=== PATIENT | male | born 1955 | race Caucasian/White ===

== ENCOUNTER 2017-04-05 08:37 | Observation (INO) | payer BC ==
[2017-04-05] MEDS ORDERED: NS 1,000 ML IV ONE (08:39)
[2017-04-05] MEDS ORDERED: ONDANSETRON 4 MG/2 ML VIAL IVP ONE (08:39)
--- NOTE | 2017-04-05 08:44 | EDPHY ---
H & P Time Seen by Provider: 04/05/17 08:41 HPI/ROS: HPI Fainted, head injury. 62-year-old male by private vehicle. This patient reports that he got up early this morning to get some work done. He reports that he was sitting down inside but then got up to go outside and have a cigarette. When he got outside he felt lightheaded and then fainted. He fell forward striking his head. He denies any associated chest pain, shortness of breath, palpitations, headache prior to this syncopal event. He takes aspirin but denies other antiplatelet or anticoagulant agents. He takes medication for hypertension. He reports having some alcohol last night. Otherwise he denies any street drugs. No alcohol this morning. He has some mild neck pain, a headache and a scalp laceration. He denies any focal weakness or loss of sensation in his extremities. No extremity pain. He reports he takes his blood pressure medications only as prescribed. He reports he is not taking his amlodipine in about a week because he ran out of the prescription. ROS: Constitutional: No fever, no chills. As above. Eyes: No discharge. No changes in vision. ENT: No sore throat. No nasal congestion or rhinorrhea. Respiratory: No cough. No shortness of breath. Cardiac: No chest pain, no palpitations. Gastrointestinal: No abdominal pain, no vomiting, no diarrhea. Genitourinary: No hematuria. No dysuria or increased frequency with urination. Musculoskeletal: No back pain. No neck pain. As above. Skin: No rashes. As above. Abrasions to hands. Neurological: As above. No focal weakness or altered sensation. Past medical history: Hypertension. He takes amlodipine, bisoprolol, chlorthalidone. He also reports using lisinopril. He takes a daily aspirin. Primary care physician is in this building. Dr. Mcnally. Social history: Smoker. Drinks alcohol in the evening. Here by himself. 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 Physical Exam: General Appearance: Alert, no distress. This patient is responding to questions appropriately and in full sentences. This patient appears well- hydrated and well-nourished. Head: Normocephalic atraumatic except for a stellate, scalp laceration about the size of a half-dollar, mid anterior parietal. No bony step-off or deformity noted on palpation of this area.. Face: Facial bones are stable on palpation. He has a 2.5 cm laceration above the right eye. He has superficial abrasions over the right maxilla and anterior aspect of the temporal bone. Eyes: Pupils equal and round and reactive to light, no pallor or injection. No lid erythema or edema. ENT, Mouth: Mucous membranes moist. Dentition is intact. No malocclusion of the jaw. No tongue lacerations or abrasions. Pharynx is clear. The bilateral nasal canals are clear. No septal hematoma. Respiratory: There are no retractions, lungs are clear to auscultation with good air movement bilaterally. Chest wall is stable to AP and lateral palpation. Cardiovascular: Regular rate and rhythm. No murmur. Gastrointestinal: Abdomen is soft and nontender, no masses, bowel sounds normal. Neurological: Motor sensory function is intact. Cranial nerves are normal. Cerebellar function intact. Skin: Warm and dry, no rashes. As above and some superficial abrasions on the dorsal aspect of both hands. Musculoskeletal: Neck is supple with mild paraspinal tenderness on palpation from C3 through C6 bilaterally. The trachea is midline. No midline cervical, thoracic, lumbar or sacral tenderness on palpation. No flank tenderness on palpation. Extremities are symmetrical, full range of motion. No pain on axial loading on all the digits of his hands, metacarpal bones, wrists bilaterally. All joints in the bilateral upper and bilateral lower extremities range without pain or impingement. No tenderness on palpation of the long bones in the bilateral upper and bilateral lower extremities. Psychiatric: No agitation. No depression. Database: EKG: EKG time is 8:50 a.m.; EKG shows a narrow complex sinus bradycardia with a ventricular rate of 31. The NM, QRS, QT intervals are within normal limits. There are no ST-T wave changes indicative of ischemic or injury pattern. No evidence of right heart strain. No evidence of WPW, hypertrophic cardiomyopathy , Brugada syndrome, arrhythmogenic right ventricular dysplasia. Interpreted by me. Imaging: CT scan of head and cervical spine: Negative. Results were discussed with staff radiologist. Procedures: Procedure: Laceration repair. Verbal consent was obtained from the patient. The 3.5 cm stellate laceration laceration on the anterior parietal scalp was anesthetized in the usual fashion. The wound was irrigated, draped and explored to its base with a gloved finger. There were no deep structures involved. No foreign body was identified. The wound was repaired with 7, 4.0 Prolene sutures placed in interrupted fashion. The wound repair was tolerated well and were no complications. The procedure was performed by myself. Procedure: Laceration repair. Verbal consent was obtained from the patient. The 2.5 cm laceration on the right lateral brow ridge was anesthetized in the usual fashion. The wound was irrigated, draped and explored to its base with a gloved finger. There were no deep structures involved. No tendon injury was identified. The wound was repaired with 5, 6.0 Ethilon sutures placed in interrupted fashion. The wound repair was tolerated well and there were no complications. The procedure was performed by myself. Emergency department course: IV placed. He was placed on a child monitor. He was started on IV normal saline with 1 L to be given over the next hour. EKG performed. Wound care as above patient sent for CT imaging of head and cervical spine. 9:50 a.m., results of CT scans were discussed with the patient. His blood work was discussed. His heart rate has consistently been in the mid to upper 30s while he has been in the emergency department. He has not been hypotensive. I discussed admission with him. He does not want to be admitted at this time. 10:10 a.m., patient re-evaluated. Resting comfortably at this time. Repeat neurologic Assessment is nonfocal. He is in agreement to be admitted. 10:15 a.m., discussed case with hospitalist. Patient accepted for admission to Dr. Galilea Holt. Patient's remaining emergency department course under my care has been uneventful. Despite his bradycardia he has remained stable. He was transferred by ambulance in stable condition. 10:20 a.m., discussed case with on-call trauma surgeon, Dr. Devaughn Sharif. He will consult on the patient for any further trauma management. Differential Diagnosis: The differential diagnosis on this patient includes but is not limited to scalp laceration, facial laceration, bradycardia, syncopal episode, probable beta shannon toxicity. Cervical spine fracture, traumatic brain injury, skull fracture, extremity injury, other significant traumatic injury unlikely. This represents a partial list of diagnoses considered. These considerations are based on history, physical exam, past history, reassessment and diagnostic testing. Smoking Status: Current every day smoker Constitutional: Initial Vital Signs Temperature (C) 36.6 C 04/05/17 08:48 Heart Rate 39 L 04/05/17 08:48 Respiratory Rate 18 04/05/17 08:48 Blood Pressure 174/75 H 04/05/17 08:48 O2 Sat (%) 97 04/05/17 08:48 O2 Delivery Mode Room Air Allergies/Adverse Reactions: No Known Allergies Allergy (Verified 12/29/15 18:01) Home Medications: Medication Instructions Recorded ASPIRIN 07/29/15 Amlodipine Besylate 07/29/15 Bisoprolol Fumarate 12/29/15 Chlorthalidone 12/29/15 Ciprofloxacin [Cipro] 500 mg PO BID 7 Days 12/29/15 Medical Decision Making - Diagnostics Imaging Results: Imaging Impressions Head CT 04/05/17 08:40 Impression: Soft tissue swelling in the frontal scalp. No evidence for skull fracture. No evidence for acute intracranial abnormality. Results called and message given to Raoul Rivero MD on April 05, 2017 at 0928 hours. - Data Points Laboratory Results: Laboratory Results 04/05/17 08:55 04/05/17 08:55 04/05/17 04/05/17 04/05/17 08:55 08:55 08:55 WBC 7.07 10^3/uL 10^3/uL (3.80-9.50) RBC 4.48 10^6/uL 10^6/uL (4.40-6.38) Hgb 15.3 g/dL g/dL (13.7-17.5) Hct 43.5 % % (40.0-51.0) MCV 97.1 fL fL (81.5-99.8) MCH 34.2 pg H pg (27.9-34.1) MCHC 35.2 g/dL g/dL (32.4-36.7) RDW 13.2 % % (11.5-15.2) Plt Count 201 10^3/uL 10^3/uL (150-400) MPV 9.7 fL fL (8.7-11.7) Neut % (Auto) 65.6 % % (39.3-74.2) Lymph % (Auto) 23.8 % % (15.0-45.0) Nelson % (Auto) 7.2 % % (4.5-13.0) Eos % (Auto) 2.5 % % (0.6-7.6) Baso % (Auto) 0.6 % % (0.3-1.7) Nucleat RBC Rel Count 0.0 % % (0.0-0.2) Absolute Neuts (auto) 4.64 10^3/uL 10^3/uL (1.70-6.50) Absolute Lymphs (auto) 1.68 10^3/uL 10^3/uL (1.00-3.00) Absolute Monos (auto) 0.51 10^3/uL 10^3/uL (0.30-0.80) Absolute Eos (auto) 0.18 10^3/uL 10^3/uL (0.03-0.40) Absolute Basos (auto) 0.04 10^3/uL 10^3/uL (0.02-0.10) Absolute Nucleated RBC 0.00 10^3/uL 10^3/uL (0-0.01) Immature Gran % 0.3 % % (0.0-1.1) Immature Gran # 0.02 10^3/uL 10^3/uL (0.00-0.10) PT 12.6 SEC SEC (12.0-15.0) INR 0.97 (0.83-1.16) APTT 25.0 SEC SEC (23.0-38.0) Sodium 137 mEq/L mEq/L (134-144) Potassium 3.9 mEq/L mEq/L (3.5-5.2) Chloride 98 mEq/L mEq/L (97-110) Carbon Dioxide 22 mEq/l mEq/l (22-31) Anion Gap 17 mEq/L H mEq/L (8-16) BUN 8 mg/dL mg/dL (7-23) Creatinine 0.8 mg/dL mg/dL (0.7-1.3) Estimated GFR > 60 Glucose 85 mg/dL mg/dL (70-100) Calcium 8.8 mg/dL mg/dL (8.5-10.4) Ethyl Alcohol 137 mg/dL H mg/dL (0-10) Medications Given: Discontinued Medications Sodium Chloride (Ns) 1,000 mls @ 0 mls/hr IV ONCE ONE; Wide Open PRN Reason: Protocol Stop: 04/05/17 08:40 Last Admin: 04/05/17 09:11 Dose: 1,000 mls Ondansetron HCl (Zofran) 4 mg IVP EDNOW ONE Stop: 04/05/17 08:40 Last Admin: 04/05/17 09:12 Dose: 4 mg Departure - Departure Disposition: [facility] Inpatient Acute Clinical Impression: Bradycardia, Syncope, Facial laceration, Scalp laceration, Head injury, Beta shannon toxicity, Alcohol intoxication
--- NOTE | 2017-04-05 08:52 | CPEKG ---
Heart Rate: 31 RR Interval: 1935 P-R Interval: 167 QRSD Interval: 96 QT Interval: 540 QTC Interval: 388 P [place]: 90 QRS [place]: 34 T Wave [place]: 65 EKG Severity - BORDERLINE ECG - EKG Impression: SINUS BRADYCARDIA EKG Impression: BORDERLINE T ABNORMALITIES, ANT-LAT LEADS Electronically Signed By: Raoul Rivero 05-Apr-2017 09:12:01
[2017-04-05 09:03] LABS: % IMMATURE GRANULYOCYTES 0.3 % (0.0-1.1); ABSOLUTE IMMATURE GRANULOCYTES 0.02 10^3/uL (0.00-0.10); ADD DIFF? NO; ADD MORPH? NO; ADD SCAN? NO; ATYPICAL LYMPHOCYTE FLAG 10 (0-99); FRAGMENT RBC FLAG 0 (0-99); HEMATOCRIT 43.5 % (40.0-51.0); HEMOGLOBIN 15.3 g/dL (13.7-17.5); LEFT SHIFT FLG 0 (0-99); LIPEMIA HEMOLYSIS FLAG 90 (0-99); MEAN CELL HEMOGLOBIN 34.2 pg (27.9-34.1); MEAN CELL HEMOGLOBIN CONCENTR. 35.2 g/dL (32.4-36.7); MEAN CELL VOLUME 97.1 fL (81.5-99.8); MEAN PLATELET VOLUME 9.7 fL (8.7-11.7); PLATELET CLUMPS FLAG 30 (0-99); PLATELET COUNT 201 10^3/uL (150-400); RED BLOOD CELL COUNT 4.48 10^6/uL (4.40-6.38); RED CELL DISTRIBUTION WIDTH 13.2 % (11.5-15.2)
[2017-04-05 09:12] LABS: ANION GAP 17 mEq/L (8-16); CALCIUM 8.8 mg/dL (8.5-10.4); CARBON DIOXIDE 22 mEq/l (22-31); CHLORIDE 98 mEq/L (97-110); CREATININE 0.8 mg/dL (0.7-1.3); GLOMERULAR FILTRATION RATE > 60; GLUCOSE 85 mg/dL (70-100); POTASSIUM 3.9 mEq/L (3.5-5.2); SODIUM 137 mEq/L (134-144)
[2017-04-05 09:17] LABS: INR 0.97 (0.83-1.16); PROTIME(PATIENT) 12.6 SEC (12.0-15.0)
[2017-04-05 10:34] LABS: ETHANOL SERUM 137 mg/dL (0-10)
[2017-04-05] MEDS ORDERED: NS 1,000 ML IV SCH (14:15)
[2017-04-05] MEDS ORDERED: ONDANSETRON 4 MG/2 ML VIAL IVP PRN (14:15)
[2017-04-05] MEDS ORDERED: ACETAMINOPHEN 325 MG TAB PO PRN (14:15)
[2017-04-05] MEDS ORDERED: LORazepam 1 MG TAB PO PRN (14:17)
--- NOTE | 2017-04-05 15:20 | GHP ---
[f rep st] HISTORY AND PHYSICAL DATE OF ADMISSION: 04/05/2017 CHIEF COMPLAINT: Syncope. HISTORY: The patient is a 62-year-old male who was getting ready to go on a camping trip this merissa ochoa when he went outside for a cigarette. He felt a little dizzy, and the dizziness was escalating, and the next thing he knew, he was on the ground with evidence of blood and head trauma. He does no t remember going down. He fell directly onto his cement patio. Respectively, he is now reconsideri gabriela how he has been feeling over the past few weeks to months and does remark that he has noticed int ermittent dizziness episodes in the past, but he always just tried to power through. He has been saavedra ving extreme fatigue. He has been feeling cold all the time and has had the heat on in his office d espite the rest of the office needing air conditioning in the summer. He has cut back on his work s chedule. He has been on bisoprolol for approximately 2 years. PAST MEDICAL HISTORY: Hypertension. PAST SURGICAL HISTORY: Hernia repair. MEDICATIONS: Please see computerized record for full detailed list. He is on bisoprolol. ALLERGIES: No known drug allergies. SOCIAL HISTORY: He is a smoker, a pack per day. He is a daily drinker of alcohol. He admits to 3- 4 beverages per day. He denies drinking more even, last night, despite his high BAL on presentation . 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 He lives alone. REVIEW OF SYSTEMS: Complete review of systems obtained. Review of systems is negative on constitut ional, HEENT, GI, pulmonary, cardiovascular, , hematology, skin, musculoskeletal, endocrine, psych . Pertinent positives and negatives as noted in HPI. FAMILY HISTORY: Reviewed and noncontributory to the presenting complaint. PHYSICAL EXAMINATION: GENERAL: Well-developed, well-nourished male, in no acute distress. VITAL S IGNS: Temperature is 36.6, pulse 39, blood pressure 162/78, saturating 97% on room air. HEENT: Ey e examination: Normal conjunctivae. Pupils equal, react to light. ENT: Normal ears and nose. He aring intact. Normal teeth. Oropharynx moist. NECK: Trachea midline. No thyromegaly. CHEST: N ormal respiratory effort. LUNGS: Clear to auscultation bilaterally. CARDIOVASCULAR: Bradycardic. No murmur. No extremity edema. ABDOMEN: Soft, nontender. No hepatosplenomegaly. SKIN: Warm, dry, intact without rash. MUSCULOSKELETAL: No cyanosis or clubbing. Strength 5/5 upper and lower extremities. NEUROLOGIC: Cranial nerves intact, normal sensation light touch. PSYCH: Alert and o riented x3. Normal mood and affect. Normal judgment. Normal insight. Normal memory. LABORATORY DATA: White count 7.07, hematocrit 43.5, platelets 201. Sodium 137, potassium 3.9, chlo ride 98, bicarb 22, BUN 8, creatinine 0.8, glucose 85. INR 0.97. Alcohol level at 9 a.m. this morn ing was 137. EKG reviewed by me, on my personal interpretation, is sinus bradycardia. No ischemic ST or T-wave changes. Head CT is negative. Cervical spine CT is negative. ASSESSMENT/PLAN: 1. Syncope due to bradycardia. We will discontinue his bisoprolol. We will check a TSH. We will monitor on telemetry. He did take his bisoprolol this morning prior to his syncopal event, so we re ally will not be able to assess the effect of withholding this drug until after a missed dose tomorr ow morning. If his bradycardia does persist with discontinuation of beta-shannon, pacemaker may be indicated. I will check an echocardiogram and serial troponins. 2. Alcohol use. He drinks daily and presumably heavily, due to a BAL of 137 at 9 a.m. this morning despite not having had any alcoholic beverages since last night. We will put him on IV thiamine an d WA protocol, use benzodiazepines as needed and follow his electrolytes. 3. Hypertension. Will continue his amlodipine, lisinopril, and chlorthalidone, but discontinue bet a-shannon as discussed above. 4. Head laceration, status post suturing in the emergency room. Trauma Surgery has been consulted by the ER. 5. Tobacco dependence. Will place on a nicotine patch. CODE STATUS: Full. ADMISSION STATUS: 1. Will admit to observation, as this may all resolve with beta-shannon withdrawal. 2. DVT prophylaxis. He is relatively low risk, and given his recent head trauma, we will hold off on Lovenox at this time. /[id number]/MODL
[2017-04-05] MEDS: THIAMINE HCL 500 MG in NS 100 ML IV SCH (18:30)
[2017-04-06 04:14] LABS: % IMMATURE GRANULYOCYTES 0.4 % (0.0-1.1); ABSOLUTE IMMATURE GRANULOCYTES 0.03 10^3/uL (0.00-0.10); ADD DIFF? NO; ADD MORPH? NO; ADD SCAN? NO; ATYPICAL LYMPHOCYTE FLAG 0 (0-99); FRAGMENT RBC FLAG 0 (0-99); HEMATOCRIT 41.2 % (40.0-51.0); LEFT SHIFT FLG 0 (0-99); LIPEMIA HEMOLYSIS FLAG 90 (0-99); MEAN CELL HEMOGLOBIN 33.9 pg (27.9-34.1); MEAN CELL VOLUME 99.8 fL (81.5-99.8); MEAN PLATELET VOLUME 10.9 fL (8.7-11.7); PLATELET CLUMPS FLAG 10 (0-99); PLATELET COUNT 199 10^3/uL (150-400); RED BLOOD CELL COUNT 4.13 10^6/uL (4.40-6.38); RED CELL DISTRIBUTION WIDTH 13.1 % (11.5-15.2)
[2017-04-06 04:24] LABS: INR 1.04 (0.83-1.16); PROTIME(PATIENT) 13.5 SEC (12.0-15.0)
[2017-04-06 04:41] LABS: ALANINE AMINOTRANSFERASE 73 IU/L (21-72); ALBUMIN 3.5 g/dL (3.5-5.0); ALKALINE PHOSPHATASE 36 IU/L (38-126); ANION GAP 8 mEq/L (8-16); ASPARTATE AMINOTRANSFERASE 65 IU/L (17-59); BILIRUBIN,TOTAL 2.1 mg/dL (0.1-1.4); BILIRUBIN-CONJUGATED 0.4 mg/dL (0.0-0.5); BILIRUBIN-UNCONJUGATED 1.7 mg/dL (0.0-1.1); CALCIUM 8.5 mg/dL (8.5-10.4); CARBON DIOXIDE 22 mEq/l (22-31); CHLORIDE 104 mEq/L (97-110); GLOMERULAR FILTRATION RATE > 60; GLUCOSE 71 mg/dL (70-100); MAGNESIUM 1.6 mg/dL (1.6-2.3); POTASSIUM 4.7 mEq/L (3.5-5.2); SODIUM 134 mEq/L (134-144); SPECIMEN HEMOLYSIS 117; TOTAL PROTEIN 5.6 g/dL (6.3-8.2)
--- NOTE | 2017-04-06 08:33 | CPEKG ---
Heart Rate: 40 RR Interval: 1500 P-R Interval: 180 QRSD Interval: 86 QT Interval: 476 QTC Interval: 389 P [place]: 72 QRS [place]: 49 T Wave [place]: 49 EKG Severity - OTHERWISE NORMAL ECG - EKG Impression: SINUS BRADYCARDIA Electronically Signed By: Greg Rodriguez 06-Apr-2017 09:07:57
[2017-04-06] MEDS ORDERED: NICOTINE 21 MG/24 HR PATCH TD SCH (09:00)
[2017-04-06] MEDS ORDERED: LISINOPRIL 40 MG TAB PO SCH (09:00)
[2017-04-06] MEDS ORDERED: ENOXAPARIN 40 MG/0.4 ML SYR SC SCH (09:00)
[2017-04-06] MEDS ORDERED: ASPIRIN 81 MG CHEWABLE TAB PO SCH (09:00)
[2017-04-06] MEDS: THIAMINE HCL 500 MG in NS 100 ML IV SCH (10:11)
--- NOTE | 2017-04-06 10:54 | ECHO ---
[id number] + + [id number] : : [place] [address] : : [phone] + Adult Echocardiographic Report + ---------+ :Name: LARON HANNAH JStudy Date: 04/06/2017 07:39 AM BP: 185/78 m mHg : : Hospital Admission Number: [id number] Mary soliz: [birth year]: :: 1955 Gender: Male Height: 69 i n : :Age: 62 yrs Race: WH Weight: 144 lb : :Reason For Study: CHF/syncope : : BSA: 1.8 met ers2 : :History: CHF : + ---------+ MMode/2D Measurements \T\ Calculations IVSd: 0.96 cm RVDd: 3.2 cm FS: 34.3 % Ao root diam: LVPWd: 0.77 cm LVIDd: 4.4 cm EDV(Teich): 3.2 cm LVIDs: 2.9 cm 86.2 ml ESV(Teich): 31.3 ml EF(Teich): 63.6 % LVLd ap4: 9.7 cm SV(MOD-sp4): EDV(MOD-sp4): 111.0 ml 144.0 ml LVLs ap4: 7.0 cm ESV(MOD-sp4): 33.0 ml EF(MOD-sp4): 77.1 % Normal Measurement Values: + + :LVIDd (3.5-5.7cm) IVSd (0.6-1.1cm) LVPWd (0.6-1.1cm) Aortic Root (2.0-3.7cm)Left Atrium (1.5-4.0cm): :LV Vol(d) (76-115ml) LV Vol(s) (29-48ml) Ejec Fraction (50-65%)PV Heriberto (0.6- 1.2m/s) TV Heriberto (0.4-1.0m/s) : :MV E Heriberto (0.8-1.0m/s)MV A Heriberto (0.3-1.0m/s)LVOT Heriberto (0.7-1.2m/s) Asc Ao Heriberto ( 0.9-1.8m/s) : + + Doppler Measurements \T\ Calculations MV E max heriberto: Ao V2 max: LV V1 max: PA V2 max: 112.5 cm/sec 156.9 cm/sec 146.5 cm/sec 93.1 cm/sec MV A max heriberto: Ao max PG: LV V1 max PG: PA max P.0 cm/sec 9.8 mmHg 8.6 mmHg 3.5 mmHg MV E/A: 2.8 MV dec time: 0.27 sec TR max heriberto: 294.4 cm/sec TR max P.7 mmHg RAP systole: 10.0 mmHg RVSP(TR): 44.7 mmHg Left Ventricle The left ventricle is normal in size and function. There is normal left ventricular wall thickness. Ejection Fraction = 65-70%. No regional wall motion abnormalities noted. Right Ventricle The right ventricle is normal in size and function. Atria The left atrium is borderline dilated. The Left Atrial Volume is 31 ml/m2. Right atrial size is normal. A dilated inferior vena cava suggests increased right atrial pressure. Mitral Valve The mitral valve is normal in structure and function. There is no mitral valve stenosis. There is mild mitral regurgitation. Tricuspid Valve The tricuspid valve is normal in structure and function. There is no tricuspid stenosis. There is mild tricuspid regurgitation. Right ventricular systolic pressure is 45mmHg. There is Doppler evidence for mild pulmonary hypertension. Aortic Valve The aortic valve is trileaflet. There is no aortic stenosis. Trace aortic regurgitation. Pulmonic Valve The pulmonic valve is not well visualized. Mild pulmonic valvular regurgitation. Great Vessels The aortic root is normal size. Pericardium/Pleural There is no pericardial effusion. Conclusion A two-dimensional transthoracic echocardiogram with M-mode and Doppler was performed. The left ventricle is normal in size and function. Ejection Fraction = 65-70%. The left atrium is borderline dilated. The Left Atrial Volume is 31 ml/m2. There is mild mitral regurgitation. There is mild tricuspid regurgitation. Right ventricular systolic pressure is 45mmHg. There is Doppler evidence for mild pulmonary hypertension. Trace aortic regurgitation. Mild pulmonic valvular regurgitation. Final Reading Physician: Barrett Hammonds signed on 04/06/2017 10:52 AM Ordering Physician: Galilea Holt Performed By: Effie Murillo
--- NOTE | 2017-04-06 15:59 | HOSPPROG ---
Hospitalist Progress Note Assessment/Plan: 62 yo m w syncope 2/2 sinus kelsy sinus kelsy: improved w dc of bisoprolol ok for dc rate still 80 w brisk ambulation, advised to seek care for presyncopal sx dispo: home today see dc summary Subjective: tele: sinus kelsy (interp by me). walked patient- HR to 80's w/out LH Objective: Vital Signs Temp Pulse Resp BP Pulse Ox 36.8 C 41 L 20 139/69 H 94 04/06/17 09:20 04/06/17 09:20 04/06/17 09:20 04/06/17 09:36 04/06/17 09:20 Laboratory Results 04/06/17 04:00 04/06/17 04:00 04/05/17 04/06/17 04/07/17 05:59 05:59 05:59 Intake Total 5923 Output Total 240 Balance 5683 PT 13.5 SEC (12.0-15.0) 04/06/17 04:00 INR 1.04 (0.83-1.16) 04/06/17 04:00 - Physical Exam Constitutional: no apparent distress, appears nourished Eyes: PERRL, anicteric sclera Ears, Nose, Mouth, Throat: moist mucous membranes, hearing normal Cardiovascular: regular rate and rhythym, no murmur, rub, or gallop Respiratory: no respiratory distress, no rales or rhonchi Gastrointestinal: normoactive bowel sounds, soft, non-tender abdomen Genitourinary: no bladder fullness Skin: warm, normal color Musculoskeletal: full muscle strength ICD10 Worksheet Patient Problems: Problems Problem Status Onset Alcohol intoxication Acute Beta shannon toxicity Acute Bradycardia Acute Facial laceration Acute Head injury Acute Scalp laceration Acute Syncope Acute
[2017-04-06 16:01] VITALS: BP 154/69; PULSE 51; RESP 14; TEMP 98.6; O2SAT 96
[2017-04-06] MEDS ORDERED: THIAMINE HCL 500 MG in NS 100 ML IV SCH (23:17)
--- NOTE | 2017-04-07 00:14 | GDS ---
[f rep st] DISCHARGE SUMMARY DISCHARGE DIAGNOSES: 1. Syncope, secondary to sinus bradycardia. 2. Beta shannon toxicity, with sinus bradycardia. 3. Likely alcoholism. HOSPITAL COURSE: Please see admission history and physical by Dr. Galilea Holt. The patient pres ented with syncope, was found to have a presenting heart rate of 31. He had an essentially normal e chocardiogram. He is on a beta shannon, which was held. Pulse remained in the 40s. Today, I ambul ated the patient. He had a pulse into the 80s without presyncopal symptoms. I discussed his blood alcohol level of 137 at 9 a.m. the following morning, and suggested that his a lcohol use is greater than is healthy for him. He has stitches on his forehead, which he can have removed by one of his friends. 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 I discontinued his bisoprolol, and continued his amlodipine and lisinopril for underlying hype rtension. He had a normal chest x-ray, and a negative head CT and cervical spine CT. Discharge sta tus is to home. /[id number]/MODL
[2017-04-08] MEDS ORDERED: THIAMINE HCL 100 MG TAB PO SCH (09:00)
== END 2017-04-06 16:27 | disposition home or self-care (01) ==
LOC: CED 08:37 → CEDHOLD 10:15 → F2W 12:20
PROVIDERS: ADMIT Internal Medicine; ATTEND Internal Medicine
PROC: 0HQ1XZZ Repair Face Skin, External Approach (ICD-10-PCS; principal; 2017-04-05)
PROC: 0HQ0XZZ Repair Scalp Skin, External Approach (ICD-10-PCS; principal; 2017-04-05)
DX: R00.1 Bradycardia, unspecified (principal); S01.01XA Laceration without foreign body of scalp, initial encounter; S01.111A Laceration without foreign body of right eyelid and periocular area, initial encounter; W19.XXXA Unspecified fall, initial encounter; Y92.018 Other place in single-family (private) house as the place of occurrence of the external cause; Z79.82 Long term (current) use of aspirin; I10 Essential (primary) hypertension; F17.210 Nicotine dependence, cigarettes, uncomplicated; Z72.89 Other problems related to lifestyle
CPT/HCPCS: 12002; 12011; 70450; 71010; 72125; 93005; 93306; 96361; 96374; 99285; G0378; 80048-PO; 85025-PO; 85610-PO; 85730-PO; G0480; J2405; J3411